=== PATIENT | female | born 1995 | race Caucasian/White ===

== ENCOUNTER 2018-03-13 10:04 | Inpatient (IN) | payer OTHER ==
[~2018-03-13] VITALS: Ht 157.5 cm; Wt 57.1 kg
--- NOTE | ~2018-03-13 | EKG ---
[address] [address] ELECTROCARDIOGRAM REPORT Name: CYNDI RESTREPO Room #: 216-P [facility] IN M.R.#: [id number] Admission: 03/13/18 Attend Phys: Papito Celis MD Discharge: 03/13/18 Date of : [birth year] Report #: [id number] THIS REPORT FOR: //name// [facility] ED Test Date: 2018-03-13 Test Time: 11:11:38 Pat Name: CYNDI RESTREPO Department: Room: 216 Gender: F Apprentice Photographer: as : 1995 Requested By: Rosa Wolf Order Number: [id number] MD: Osman Goodman Measurements Intervals T[place] Key Rate: 74 P: 45 OR: 142 QRS: 65 QRSD: 106 T: 64 QT: 397 QTc: 441 Interpretive Statements Sinus rhythm RSR' in V1 or V2, right VCD No previous ECG available for comparison Electronically Signed On 03-14-2018 9:39:58 CELL PHONE REPAIR TECHNICIAN by Osman Goodman [email or web address] <ELECTRONICALLY SIGNED> By: Osman Goodman MD, [facility] 03/14/18 [id number] Osman Goodman MD, FACC /EPI
[2018-03-13 10:18] VITALS: BP 108/62
[2018-03-13 10:43] LABS: ABSOLUTE NEUTROPHILS 3.4 thou/uL (1.4-8.2); BASOPHILS 0.3 % (0.0-2.0); EOSINOPHILS 3.6 % (0.0-3.0); HEMOGLOBIN 13.7 gm/dL (12.0-15.0); MCH 27.4 pg (26.0-34.0); MCHC 33.4 g/dL (28.0-37.0); MONOCYTES 7.3 % (1.0-8.0); PLATELET COUNT 305 thou/uL (150-400); POLYS 48.8 % (36.0-66.0); RBC 5.01 mil/uL (4.20-5.00); WBC 6.9 thou/uL (4.0-11.0)
[2018-03-13 10:48] LABS: ANION GAP 6 mmol/L (7-16); BUN 20 mg/dL (7-18); CALCIUM 9.1 mg/dL (8.5-10.1); CHLORIDE 104 mmol/L (98-107); CO2 28 mmol/L (21-32); CREATININE 0.9 mg/dL (0.6-1.0); GLUCOSE 94 mg/dL (74-106); SODIUM 138 mmol/L (136-145)
[2018-03-13 10:57] LABS: ALBUMIN 3.7 g/dL (3.4-5.0); SGOT 12 U/L (15-37); SGPT 20 U/L (30-65); TOTAL BILIRUBIN 0.2 mg/dL (<0.1-1.0); TOTAL PROTEIN 7.3 g/dL (6.4-8.2); TROPONIN-I <0.06 ng/mL (<0.06)
[2018-03-13 11:03] LABS: URINE BILIRUBIN NEGATIVE (Negative); URINE BLOOD 1+ (Negative); URINE CLARITY CLEAR; URINE COLOR YELLOW; URINE GLUCOSE-RANDOM* NEGATIVE (Negative); URINE KETONES NEGATIVE (Negative); URINE LEUKOCYTES-REFLEX NEGATIVE (Negative); URINE NITRITE-REFLEX NEGATIVE (Negative); URINE PROTEIN (DIPSTICK) NEGATIVE (Negative); URINE SPECIFIC GRAVITY >= 1.030 (1.005-1.035); URINE UROBILINOGEN 0.2 E.U./dl (0.2-1.0)
[2018-03-13 11:10] LABS: AMP/METHAMP POSITIVE (Negative); BARBITURATES Negative (Negative); BENZODIAZEPINES POSITIVE (Negative); COCAINE Negative (Negative); METHADONE Negative (Negative); OPIATES POSITIVE (Negative); PCP Negative (Negative)
[2018-03-13 11:20] LABS: BACTERIA-REFLEX >30 Many /HPF (None Seen); SQUAMOUS >10 Many /LPF (0-3); URINE RBC 3-10 Few /HPF (0-2); URINE WBC-REFLEX 6-15 Few /HPF (0-5)
[2018-03-13 11:21] LABS: CASTS None Seen /LPF (None Seen); CRYSTALS None Seen /LPF (None Seen)
[2018-03-13 11:22] LABS: MUCUS >6 Heavy strn/LPF (None Seen)
[2018-03-13 12:55] VITALS: BP 93/55
[2018-03-13 15:21] VITALS: BP 125/87
[2018-03-13 16:01] VITALS: BP 125/87
== END 2018-03-13 16:10 | disposition left against medical advice (07) | DRG 918 ==
LOC: EDBD 10:04 → ER 10:04 → EROBS 12:51 → 2N 12:51
PROVIDERS: Nurse Practitioner Family
DX: T40.601A Poisoning by unspecified narcotics, accidental (unintentional), initial encounter (principal); N39.0 Urinary tract infection, site not specified; T43.621A Poisoning by amphetamines, accidental (unintentional), initial encounter; G40.909 Epilepsy, unspecified, not intractable, without status epilepticus; F17.210 Nicotine dependence, cigarettes, uncomplicated; Z53.21 Procedure and treatment not carried out due to patient leaving prior to being seen by health care provider; Y92.89 Other specified places as the place of occurrence of the external cause; Z88.8 Allergy status to other drugs, medicaments and biological substances
CPT/HCPCS: 10081